=== PATIENT | female | born 1980 ===

== ENCOUNTER 2019-02-03 18:49 | Emergency (ER) | payer MEDICAID ==
[~2019-02-03] VITALS: Ht 167.6 cm; Wt 80.0 kg
[2019-02-03 18:52] VITALS: BP 132/96
[2019-02-03] MEDS ORDERED: gabapentin 400mg capsule PO STA (19:43)
[2019-02-03] MEDS ORDERED: GABA-532 PO (19:48)
== END 2019-02-03 19:58 | disposition home or self-care (01) ==
LOC: ER 18:50
DX: F10.239 Alcohol dependence with withdrawal, unspecified (principal); L21.0 Seborrhea capitis; F41.9 Anxiety disorder, unspecified; Z88.0 Allergy status to penicillin; Z79.899 Other long term (current) drug therapy
CPT/HCPCS: 99283